=== PATIENT | male | born 1995 | race Caucasian/White ===

== ENCOUNTER 2017-08-20 22:17 | Emergency (ER) | payer OTHER ==
[~2017-08-20] VITALS: Ht 180.3 cm; Wt 72.9 kg
[2017-08-20 22:52] LABS: HEMATOCRIT 43.7 % (38.0-50.0); HEMOGLOBIN 15.4 G/DL (12.5-16.6); MCH 31.4 PG (29.0-34.0); MCHC 35.2 G/DL (30.0-36.0); PLATELET COUNT 206 K/uL (156-360); RBC DIS.WIDTH-CV 12.6 % (11.8-14.6); RBC DIS.WIDTH-SD 41.3 % (39-53); RED BLOOD COUNT 4.91 M/uL (4.00-5.50); WHITE BLOOD COUNT 9.8 K/uL (4.1-10.2)
[2017-08-20 23:00] LABS: PTT 27.3 SEC (25-37)
[2017-08-20 23:02] LABS: ALBUMIN 4.4 g/dL (3.2-4.8); CHLORIDE 106 mEq/L (99-109); POTASSIUM 3.7 mEq/L (3.7-5.4); SODIUM 139 mEq/L (136-147)
[2017-08-20 23:04] LABS: GLUCOSE 124 mg/dL (70-99)
[2017-08-20 23:05] LABS: TOTAL PROTEIN 6.9 g/dL (6.4-8.3)
[2017-08-20 23:06] LABS: TOTAL BILIRUBIN 0.4 mg/dL (0.0-1.0)
[2017-08-20 23:08] LABS: ALKALINE PHOSPHATASE 76 IU/L (3-129); CREATININE 0.9 mg/dL (0.6-1.3)
[2017-08-20 23:09] LABS: UREA NITROGEN (BUN) 11 mg/dL (9-23)
[2017-08-20 23:10] LABS: AST (GOT) 20 IU/L (2-34)
[2017-08-20 23:11] LABS: ALT (GPT) 27 IU/L (3-49); LIPASE 29 U/L (1.0-51.0)
[2017-08-20 23:15] LABS: APPEARANCE SL.HAZY ((CLEAR)); BILIRUBIN NEGATIVE; BLOOD NEGATIVE; COLOR YELLOW ((YELLOW)); GLUCOSE (STRIP) NEGATIVE; KETONES NEGATIVE; LEUKOCYTES NEGATIVE; NITRITE NEGATIVE; PROTEIN (STRIP) NEGATIVE; SPECIFIC GRAVITY 1.017 (1.000-1.030); UROBILINOGEN 0.2 MG/DL (0.2-1.0)
[2017-08-20 23:23] LABS: BACTERIA NONE SEEN /HPF; EPITHELIAL CELLS NONE SEEN /HPF; MUCUS TRACE /LPF; RED BLOOD CELLS 0-5 /HPF (0-5); UCUL ADDED? NO; WHITE BLOOD CELLS 0-5 /HPF (0-5)
[2017-08-20 23:33] LABS: GFR ESTIMATE (CALCULATED) > 59 mL/min/ (58.99-99999)
[2017-08-21] MEDS ORDERED: BENTYL20 MG PO (03:23)
[2017-08-21] MEDS ORDERED: PEPCID20 MG PO (03:23)
[2017-08-21 03:47] LABS: D-DIMER ELISA < 150.00 ng/mLDDU (<230)
[2017-08-21 04:14] VITALS: BP 119/60
== END 2017-08-21 04:15 | disposition home or self-care (01) ==
LOC: EME 22:17
PROVIDERS: Emergency Medicine
DX: K29.00 Acute gastritis without bleeding (principal); Z86.711 Personal history of pulmonary embolism; F17.200 Nicotine dependence, unspecified, uncomplicated
CPT/HCPCS: 80053; 81003; 83690; 85027; 85379; 85610; 85730; 86850; 86900; 86901; 99281; 99284